=== PATIENT | male | born 1945 | race Caucasian/White ===

== ENCOUNTER 2024-09-25 03:12 | Inpatient (IN) | payer MEDICARE, MEDICAID ==
[2024-09-25] VITALS (67 sets, daily range): BP systolic 118–166; BP diastolic 40–65; PULSE 48–78; RESP 18–24; TEMP 37.6–39.1; O2SAT 98–100
[~2024-09-25] VITALS: Ht 172.7 cm; Wt 774.3 kg
[2024-09-25] MEDS ORDERED: AMPICILLIN SOD/SULBACTAM NA 3 G in SODIUM CHLORIDE 0.9% 100 ML IV SCH (03:30)
[2024-09-25 03:51] LABS: CHLORIDE 106 mEq/L (98-107); POTASSIUM 4.3 mEq/L (3.5-5.1); SODIUM 138 mEq/L (136-145)
[2024-09-25 03:52] LABS: CARBON DIOXIDE 21 mEq/L (21-32)
[2024-09-25] MEDS: VANCOMYCIN 1G PREMIX 200 ML IV ONE (03:54)
[2024-09-25 03:55] LABS: BASOPHILS % 0.4 % (0.0-2.0); EOSINOPHILS % 0.9 % (0.0-5.0); HEMATOCRIT. 31.6 % (42.0-52.0); HEMOGLOBIN. 10.5 g/dL (14.0-18.0); LYMPHOCYTES % 12.1 % (20.0-50.0); MEAN CORPUSCULAR HEMOGLOBIN 31.9 pg (28.0-32.0); MEAN CORPUSCULAR HGB CONC 33.3 g/dL (31.0-37.0); MEAN CORPUSCULAR VOLUME 95.7 fL (80.0-94.0); MEAN PLATELET VOLUME 8.6 fl (7.4-10.4); MONOCYTES % 6.7 % (2.0-8.0); NEUTROPHILS % 79.9 % (40.0-76.0); PLATELET 124 x1000/uL (130-400); RED CELL DISTRIBUTION WIDTH 13.3 % (11.6-14.6); WHITE BLOOD COUNT 6.4 x1000/uL (4.5-11.0)
[2024-09-25] MEDS: PROPOFOL 10MG/ML 100ML 100 ML IV ONE (03:56)
[2024-09-25 03:57] LABS: CREATININE 1.7 mg/dL (0.6-1.3); ETHANOL BLOOD 264 mg/dL (<10); GLUCOSE 189 mg/dL (70-105); UREA NITROGEN BLOOD 34 mg/dL (9-23)
[2024-09-25 03:59] LABS: ALANINE AMINOTRANSFERASE 16 IU/L (10-49); ALBUMIN 3.8 g/dL (3.2-4.8); ASPARTATE AMINOTRANSFERASE 18 IU/L (<34); BILIRUBIN DIRECT 0.2 mg/dL (<=3.0); BILIRUBIN TOTAL 0.5 mg/dL (0.1-1.0); CREATINE KINASE 98 IU/L (46-171); LACTIC ACID 2.5 mmol/L (0.4-2.0); PROTEIN TOTAL 6.7 g/dL (6.0-8.3); TROPONIN I HIGH SENSITIVITY 12 ng/L (3.0-53)
[2024-09-25] MEDS: SODIUM CHLORIDE 0.9% (SEPSIS BOLUS) IV ONE (04:11)
[2024-09-25 04:13] LABS: CLARITY URINE CLEAR (CLEAR); COLOR URINE YELLOW (YELLOW); GLUCOSE URINE NEGATIVE (NEGATIVE); KETONES URINE NEGATIVE (NEGATIVE); LEUKOCYTE ESTERASE URINE NEGATIVE (NEGATIVE); NITRITE URINE NEGATIVE (NEGATIVE); OCCULT BLOOD URINE NEGATIVE (NEGATIVE); PROTEIN URINE 1+ (NEGATIVE); SPECIFIC GRAVITY URINE 1.015 (1.005-1.030); UROBILINOGEN URINE 0.2 E.U./dL (0.2-1.0)
[2024-09-25 04:22] LABS: *AMPHETAMINES SCREEN URINE NEGATIVE (NEGATIVE); *BARBITURATES SCREEN URINE NEGATIVE (NEGATIVE); *BENZODIAZEPINES SCREEN URINE NEGATIVE (NEGATIVE); *COCAINE SCREEN URINE NEGATIVE (NEGATIVE); BACTERIA URINE NONE SEEN; CANNABINOID URINE SCREEN NEGATIVE (NEGATIVE); ECSTASY MDMA SCREEN URINE NEGATIVE (NEGATIVE); METHADONE URINE SCREEN NEGATIVE (NEGATIVE); OPIATES URINE SCREEN NEGATIVE (NEGATIVE); PHENCYCLIDINE URINE SCREEN NEGATIVE (NEGATIVE); RBC URINE 0-2 /hpf (0-2); SQUAMOUS EPITHELIAL CELL URINE NONE SEEN /lpf (RARE/1+); WBC URINE 0-2 /hpf (0-2)
[2024-09-25 04:48] LABS: PROTHROMBIN TIME 10.4 sec (9.6-11.0)
[2024-09-25 05:30] LABS: BG BASE EXCESS -6.9 mmol/L (-2.0-3.0); BG DEOXYHEMOGLOBIN 0.1 % (0.0-5.0); BG FRACTION INSPIRED OXYGEN 80; BG METHEMOGLOBIN 0.3 % (0.5-1.5); BG OXYGEN SATURATION 99.9 % (94.0-98.0); BG OXYHEMOGLOBIN 99.6 % (94.0-98.0); BG PCO2 39.4 mmHg (35.0-48.0); BG PO2 362.5 mmHg (83.0-108.0); BG TOTAL HEMOGLOBIN 10.8 g/dL (13.5-17.5); BG VENT MODE VENT - AC
[2024-09-25] MEDS ORDERED: IPRATROPIUM/ALBUTEROL 0.5-3(2.5)MG/3ML NEB NEB PRN (07:45)
[2024-09-25] MEDS ORDERED: ETOMIDATE 2MG/ML 10ML VIAL IV ONE (08:13)
[2024-09-25] MEDS ORDERED: PANTOPRAZOLE SODIUM 40 MG/VIAL IV SCH (09:00)
[2024-09-25] MEDS: MVI, ADULT NO.1 10 ML, FOLIC ACID 1 MG, THIAMINE HCL 100 MG in SODIUM CHLORIDE 0.9% 1,0... IV ONE (09:15)
[2024-09-25] MEDS: PROPOFOL 10MG/ML 100ML 100 ML IV SCH (09:15)
[2024-09-25] MEDS: PANTOPRAZOLE SODIUM 40 MG/VIAL IV SCH (09:16)
[2024-09-25] MEDS: PIPERACILLIN/TAZO 3.375G/50ML IV SCH (09:16)
[2024-09-25 09:18] LABS: BASOPHILS % 0.1 % (0.0-2.0); EOSINOPHILS % 0.1 % (0.0-5.0); HEMATOCRIT. 31.1 % (42.0-52.0); HEMOGLOBIN. 10.2 g/dL (14.0-18.0); LYMPHOCYTES % 8.1 % (20.0-50.0); MEAN CORPUSCULAR HEMOGLOBIN 32.1 pg (28.0-32.0); MEAN CORPUSCULAR VOLUME 97.4 fL (80.0-94.0); MEAN PLATELET VOLUME 8.2 fl (7.4-10.4); MONOCYTES % 6.4 % (2.0-8.0); NEUTROPHILS % 85.3 % (40.0-76.0); PLATELET 124 x1000/uL (130-400); RED BLOOD CELL COUNT 3.19 mill/uL (4.7-6.1); RED CELL DISTRIBUTION WIDTH 13.6 % (11.6-14.6); WHITE BLOOD COUNT 10.5 x1000/uL (4.5-11.0)
[2024-09-25] MEDS: ETOMIDATE 2MG/ML 10ML VIAL IV ONE (09:22)
[2024-09-25] MEDS: SUCCINYLCHOLINE CHLORIDE 200MG/10ML IV ONE (09:22)
[2024-09-25 09:25] LABS: POTASSIUM 4.4 mEq/L (3.5-5.1)
[2024-09-25 09:26] LABS: CALCIUM 7.4 mg/dL (8.7-10.4)
[2024-09-25 09:31] LABS: CREATININE 1.2 mg/dL (0.6-1.3)
[2024-09-25 09:33] LABS: AMMONIA 21 uMol/L (<32)
[2024-09-25] MEDS: ACETAMINOPHEN 650MG SUPP PR PRN (11:20)
[2024-09-25] MEDS: SODIUM CHLORIDE 0.9% 3ML FLUSH IVF SCH (13:20)
[2024-09-25] MEDS: DEXT 5%/0.45% NACL 1000ML 1,000 ML IV SCH (16:19)
[2024-09-25 16:29] LABS: INFLUENZA TYPE A Presumptive Negative (Pres. Neg.)
[2024-09-25 16:30] LABS: INFLUENZA TYPE B Presumptive Negative (Pres. Neg.)
[2024-09-25] MEDS: PROPOFOL 10MG/ML 100ML 100 ML IV PRN (19:43)
[2024-09-26] VITALS (87 sets, daily range): BP systolic 102–175; BP diastolic 47–110; PULSE 47–92; RESP 16–27; TEMP 36.1–37.2; O2SAT 95–100
[2024-09-26 05:16] LABS: BASOPHILS % 0.3 % (0.0-2.0); EOSINOPHILS % 1.5 % (0.0-5.0); HEMATOCRIT. 31.4 % (42.0-52.0); HEMOGLOBIN. 10.6 g/dL (14.0-18.0); LYMPHOCYTES % 12.3 % (20.0-50.0); MEAN CORPUSCULAR HEMOGLOBIN 32.9 pg (28.0-32.0); MEAN CORPUSCULAR HGB CONC 33.6 g/dL (31.0-37.0); MEAN PLATELET VOLUME 8.9 fl (7.4-10.4); NEUTROPHILS % 77.9 % (40.0-76.0); PLATELET 119 x1000/uL (130-400); RED BLOOD CELL COUNT 3.21 mill/uL (4.7-6.1); RED CELL DISTRIBUTION WIDTH 13.7 % (11.6-14.6); WHITE BLOOD COUNT 9.1 x1000/uL (4.5-11.0)
[2024-09-26 05:18] LABS: CALCIUM 7.9 mg/dL (8.7-10.4); CARBON DIOXIDE 24 mEq/L (21-32); CHLORIDE 111 mEq/L (98-107); POTASSIUM 4.2 mEq/L (3.5-5.1); SODIUM 142 mEq/L (136-145)
[2024-09-26 05:24] LABS: CREATININE 1.2 mg/dL (0.6-1.3); GLUCOSE 110 mg/dL (70-105); TRIGLYCERIDE 80 mg/dL (0-150); UREA NITROGEN BLOOD 28 mg/dL (9-23)
[2024-09-26 05:26] LABS: PHOSPHORUS 3.6 mg/dL (2.5-4.9)
[2024-09-26] MEDS: PIPERACILLIN/TAZO 3.375G/50ML 50 ML IV SCH (06:23)
[2024-09-26 09:01] LABS: BG BASE EXCESS -3.1 mmol/L (-2.0-3.0); BG CARBOXYHEMOGLOBIN 0.3 % (0.5-1.5); BG DEOXYHEMOGLOBIN 3.5 % (0.0-5.0); BG FRACTION INSPIRED OXYGEN 40; BG HCO3 ACT 21.6 mmol/L (21.0-28.0); BG METHEMOGLOBIN 0.3 % (0.5-1.5); BG OXYGEN SATURATION 96.5 % (94.0-98.0); BG OXYHEMOGLOBIN 95.9 % (94.0-98.0); BG PCO2 37.2 mmHg (35.0-48.0); BG PH 7.382 (7.350-7.450); BG PO2 84.9 mmHg (83.0-108.0); BG SAMPLE SITE RIGHT RADIAL; BG TOTAL HEMOGLOBIN 11.1 g/dL (13.5-17.5); BG VENT MODE VENT - AC
[2024-09-26] MEDS: AMLODIPINE 5MG TABLET PO SCH (09:23)
[2024-09-26] MEDS: HYDRALAZINE 20MG/ML VIAL IV NR (09:23)
[2024-09-26] MEDS: LOSARTAN 100 MG TABLET PO SCH (12:20)
[2024-09-26 12:59] LABS: BG CARBOXYHEMOGLOBIN 0.3 % (0.5-1.5); BG DEOXYHEMOGLOBIN 1.8 % (0.0-5.0); BG FRACTION INSPIRED OXYGEN 35; BG HCO3 ACT 19.5 mmol/L (21.0-28.0); BG OXYGEN SATURATION 98.2 % (94.0-98.0); BG OXYHEMOGLOBIN 97.9 % (94.0-98.0); BG PCO2 30.6 mmHg (35.0-48.0); BG PH 7.423 (7.350-7.450); BG PO2 108.5 mmHg (83.0-108.0); BG SAMPLE SITE RIGHT RADIAL; BG TOTAL HEMOGLOBIN 11.1 g/dL (13.5-17.5); BG VENT MODE VENT - SIMV
[2024-09-26] MEDS ORDERED: ATOR20TA65 MT (14:08)
[2024-09-26] MEDS ORDERED: LOSA25TA26 MT (14:08)
[2024-09-26] MEDS ORDERED: ERGO1250 (14:08)
[2024-09-26] MEDS: HYDRALAZINE 20MG/ML VIAL IV PRN (15:21)
[2024-09-26 16:03] LABS: BG BASE EXCESS -4.3 mmol/L (-2.0-3.0); BG CARBOXYHEMOGLOBIN 0.3 % (0.5-1.5); BG DEOXYHEMOGLOBIN 1.5 % (0.0-5.0); BG FRACTION INSPIRED OXYGEN 35; BG HCO3 ACT 19.1 mmol/L (21.0-28.0); BG METHEMOGLOBIN 0.3 % (0.5-1.5); BG OXYGEN SATURATION 98.5 % (94.0-98.0); BG OXYHEMOGLOBIN 97.9 % (94.0-98.0); BG PCO2 30.1 mmHg (35.0-48.0); BG PH 7.421 (7.350-7.450); BG PO2 109.2 mmHg (83.0-108.0); BG SAMPLE SITE RIGHT RADIAL; BG TOTAL HEMOGLOBIN 11.6 g/dL (13.5-17.5); BG VENT MODE VENT - CPAP
[2024-09-27] VITALS (19 sets, daily range): BP systolic 121–164; BP diastolic 40–83; PULSE 60–75; RESP 13–23; TEMP 35.8–37.3; O2SAT 94–98
[2024-09-27 10:37] LABS: BASOPHILS % 0.6 % (0.0-2.0); EOSINOPHILS % 2.6 % (0.0-5.0); HEMATOCRIT. 28.6 % (42.0-52.0); HEMOGLOBIN. 9.6 g/dL (14.0-18.0); LYMPHOCYTES % 15.2 % (20.0-50.0); MEAN CORPUSCULAR HEMOGLOBIN 32.4 pg (28.0-32.0); MEAN CORPUSCULAR HGB CONC 33.5 g/dL (31.0-37.0); MEAN CORPUSCULAR VOLUME 96.6 fL (80.0-94.0); MEAN PLATELET VOLUME 8.3 fl (7.4-10.4); MONOCYTES % 7.6 % (2.0-8.0); PLATELET 127 x1000/uL (130-400); RED BLOOD CELL COUNT 2.96 mill/uL (4.7-6.1); RED CELL DISTRIBUTION WIDTH 13.2 % (11.6-14.6); WHITE BLOOD COUNT 6.2 x1000/uL (4.5-11.0)
[2024-09-27 10:48] LABS: CHLORIDE 108 mEq/L (98-107); POTASSIUM 3.8 mEq/L (3.5-5.1); SODIUM 141 mEq/L (136-145)
[2024-09-27 10:49] LABS: CALCIUM 8.2 mg/dL (8.7-10.4); CARBON DIOXIDE 23 mEq/L (21-32)
[2024-09-27 10:54] LABS: CREATININE 1.1 mg/dL (0.6-1.3); GLUCOSE 161 mg/dL (70-105); UREA NITROGEN BLOOD 16 mg/dL (9-23)
== END 2024-09-27 18:56 | disposition home or self-care (01) | DRG 871 ==
LOC: ER 03:12 → MICUSO 05:04 → EDBEDREQTM 05:13 → EDBEDREQ 05:13
PROVIDERS: ADMIT Internal Medicine; ATTEND Internal Medicine
PROC: 5A1945Z Respiratory Ventilation, 24-96 Consecutive Hours (ICD-10-PCS; principal; 2024-09-25)
PROC: 0BH17EZ Insertion of Endotracheal Airway into Trachea, Via Natural or Artificial Opening (ICD-10-PCS; 2024-09-25)
DX: A41.9 Sepsis, unspecified organism (principal); G92.8 Other toxic encephalopathy; J69.0 Pneumonitis due to inhalation of food and vomit; J96.01 Acute respiratory failure with hypoxia; J18.9 Pneumonia, unspecified organism; E87.20 Acidosis, unspecified; Z20.822 Contact with and (suspected) exposure to COVID-19; D64.9 Anemia, unspecified; E87.70 Fluid overload, unspecified; Y90.8 Blood alcohol level of 240 mg/100 ml or more; I44.0 Atrioventricular block, first degree; R73.9 Hyperglycemia, unspecified; K29.70 Gastritis, unspecified, without bleeding; I10 Essential (primary) hypertension
CPT/HCPCS: 31500; 36415; 36600; 71045; 80048; 80076; 80305; 80320; 81003; 82140; 82375; 82550; 82805; 83605; 83735; 83880; 84100; 84145; 84478; 84484; 85025; 87070; 87426; 87430; 87804; 92610; 93005; 93970; 94002; 94003; 94070; 94640; 94664; 99291; A4606; J0295; J0330; J0360; J2470; J2543; J2704; J3370; J3411; J3490; J7030; J7050; G0480